=== PATIENT | female | born 1990 ===

== ENCOUNTER 2019-02-19 09:21 | Outpatient (REF) | payer BC, SELFPAY ==
--- NOTE | 2019-02-19 08:20 | PAPFT_PTH ---
PATIENT: EUGENIE DOW LOC: [facility] U#:[id number] AGE/SX: 29/F ROOM: RE02/19/[address]: Carolin Rodriguez : 1990 BED: DIS: 02/19/2019 SPEC #: [id number] RECD: 02/24/19 12:50 STATUS: ENRIQUE REBlossom #: [id number] SILVIO: 02/19/19 08:[address]: Carolin Rodriguez DEPT: [facility] Cytology RECD BY: Laurel Baldwin ENTERED: 02/24/19 12:51 SP TYPE: PAPFT OTHR DR: James Wen Tissues: 1 - CX/ENDOCX FOR PAP SMEARS Procedures: PAP THIN PREP/[facility] Screening HPV DNA PROBE Comments: [id number]
== END 2019-02-19 09:41 ==
LOC: NCHCN 09:21
PROVIDERS: PCP Internal Medicine; Visit Provider Internal Medicine
DX: Z00.00 Encounter for general adult medical examination without abnormal findings (principal); Z12.4 Encounter for screening for malignant neoplasm of cervix; Z11.51 Encounter for screening for human papillomavirus (HPV)
CPT/HCPCS: 88142; 87624